=== PATIENT | male | born 1955 | race Caucasian/White ===

== ENCOUNTER 2019-04-14 10:25 | Emergency (ER) | payer OTHER ==
[~2019-04-14] VITALS: Ht 172.7 cm; Wt 68.0 kg
[~2019-04-14 10:25] MED LIST: ASPIR-TRIN325 MG PO; CIPROFLOXACIN500 M1 PO; CLEOCIN HCL150 MG PO; NORCO 5-325 TA1 EACH PO; OXYCODONE HCL 55 MG PO; RANITIDINE; SIMVASTATIN; VICODIN 5-3001 EACH PO; XARELTO10 MG PO
[2019-04-14 10:30] VITALS: BP 164/93
[2019-04-14] MEDS ORDERED: BACTRIM DS TAB1 EAC1 PO (10:33)
[2019-04-14] MEDS ORDERED: COLY-MYCIN S OT10 ML RT. EAR (10:34)
[2019-04-14] MEDS ORDERED: MOBIC7.5 MG PO (10:41)
== END 2019-04-14 10:50 | disposition home or self-care (01) ==
LOC: M.ERS 10:25
DX: H92.02 Otalgia, left ear (principal); Z88.0 Allergy status to penicillin; Z96.652 Presence of left artificial knee joint; Z91.013 Allergy to seafood